=== PATIENT | male | born 1955 | race Caucasian/White ===

== ENCOUNTER 2017-08-29 11:41 | Inpatient (IN) | payer OTHER ==
[~2017-08-29] VITALS: Ht 167.6 cm; Wt 68.2 kg
--- NOTE | 2017-08-29 11:55 | NUR ---
[id number] FROM HOME C/O GENERALIZED BODY WEAKNESS, FEELS SLEEPY. PATIENT IS A/OX 3, BREATHING EVEN AND UNLABORED. NO SOB, NAD, VITALS STABLE. IV ESTABLISHED EN ROUTE ON LFA, 16G. SAFETY AND COMFORT MEASURES IN PLACE. AWAITING MD ORDERS.
[2017-08-29] MEDS ORDERED: IV NS 0.9% 1,000 ML BAG IV ONE ×2 (12:00→14:00)
[2017-08-29] MEDS ORDERED: ONDANSETRON HCL/PF 4 MG/2 ML VIAL IVP ONE (12:00)
[2017-08-29] MEDS ORDERED: ONDANSETRON HCL/PF 4 MG/2 ML VIAL ONE (12:03)
[2017-08-29 12:14] LABS: BASOPHILS # (AUTO) 0.2 /CMM (0.0-0.2); BASOPHILS % (AUTO) 1.7 % (0.0-2.0); EOSINOPHILS % (AUTO) 0.7 % (0.0-6.0); HEMATOCRIT 39 % (39-51); HEMOGLOBIN 13.4 g/dL (13.5-17.5); LYMPHOCYTES % (AUTO) 10.9 % (20.0-44.0); MEAN CORPUSCULAR HGB CONC 34 g/dl (31.0-36.0); MEAN CORPUSCULAR VOLUME 88 fL (80-96); MONOCYTES # (AUTO) 0.2 /CMM (0.1-1.30); MONOCYTES % (AUTO) 2.1 % (2.0-12.0); NEUTROPHILS # (AUTO) 7.5 /CMM (1.8-8.9); NEUTROPHILS % (AUTO) 84.6 % (43.0-81.0); PLATELET COUNT (AUTO) 261 /CMM (150-450); RDW COEFFICIENT OF VARIATION 12.8 (11.5-15.0); RED BLOOD CELL COUNT(AUTO) 4.45 MIL/uL (4.5-6.0)
--- NOTE | 2017-08-29 12:14 | NUR ---
PATIENT MEDICATED PER MD ORDERS.
[2017-08-29 12:24] LABS: CALCIUM, SERUM 8.4 mg/dL (8.5-10.1); CARBON DIOXIDE 27 mmol/L (21-32); CHLORIDE 103 mmol/L (98-107); CREATININE 0.8 mg/dL (0.6-1.3); GLUCOSE 125 mg/dL (74-106); POTASSIUM 4.1 mmol/L (3.5-5.1); SODIUM SERUM 135 mmol/L (136-145); UREA NITROGEN, BLOOD 14 mg/dL (7-18)
[2017-08-29 12:29] LABS: INR 0.92 (0.85-1.15)
[2017-08-29 12:30] LABS: ALANINE AMINOTRANSFERASE 17 U/L (12-78); ALBUMIN 3.5 g/dL (3.4-5.0); ALKALINE PHOSPHATASE 70 U/L (46-116); ASPARTATE AMINOTRANSFERASE 15 U/L (15-37); BILIRUBIN,DIRECT 0.1 mg/dL (0.0-0.2); BILIRUBIN,TOTAL 0.6 mg/dL (0.2-1.0); TOTAL PROTEIN, SERUM 6.7 g/dL (6.4-8.2)
[2017-08-29 12:34] LABS: TROPONIN I < 0.017 ng/mL (0.00-0.056)
--- NOTE | 2017-08-29 14:10 | NUR ---
ASSIGNED TO TELE #: [id number] DX: DIZZINESS/ HYPOTENSION ACCEPTING MD: DR. RODRIGUEZ
[2017-08-29] MEDS ORDERED: HYDROCODONE/APAP 5/325MG 1 EACH TABLET PO PRN (14:30)
[2017-08-29] MEDS ORDERED: MAGNESIUM HYDROXIDE 30 ML UDC PO PRN (14:30)
[2017-08-29] MEDS ORDERED: Z GUARD REMEDY 2 OZ OINT TP PRN (14:30)
[2017-08-29] MEDS ORDERED: ACETAMINOPHEN 325 MG TABLET PO PRN (14:30)
[2017-08-29] MEDS ORDERED: MAG HYDROX/AL HYDROX/SIMETH 30 ML UDC PO PRN (14:30)
[2017-08-29] MEDS ORDERED: ONDANSETRON HCL/PF 4 MG/2 ML VIAL IVP PRN (14:30)
[2017-08-29] MEDS ORDERED: ZOLPIDEM TARTRATE 5 MG TABLET PO PRN (14:30)
--- NOTE | 2017-08-29 14:52 | NUR ---
REPORT GIVEN TO ENA BORREGO FOR PING UPON ADMISSION.
[2017-08-29] MEDS ORDERED: ENOXAPARIN SODIUM 40 MG/0.4 ML DISP.SYRIN SQ SCH (15:00)
--- NOTE | 2017-08-29 15:00 | NUR ---
PATIENT TRANSPORTED TO 306-1 VIA ACLS PROTOCOL. RNENA TO PROVIDE PING.
--- NOTE | 2017-08-29 15:15 | NUR ---
STORAGE GARAGE ATTENDANTUNIT TENDER NOTES: Patient brought in by ELMO Diana to the unit via gurney, tele monitor in place. Patient alert, oriented x 4. Reports some dizziness with movement. Patient oriented to room. Call light within reach. Educated on use of call light. Bed in low, locked position. Peripheral IV on LFA g#16, intact and patent. Skin is intact. Patient reports living at home with sister. Denies any medical conditions or taking any medications at home. Instructed patient to call for assistance when ambulating. Urinal at bedside. No complaints of pain or any discomfort at this time.
[2017-08-29] MEDS: IV D5W 1,000 ML IV PRN (15:42)
--- NOTE | 2017-08-29 19:22 | NUR ---
RN CLOSING NOTES: Patient resting in bed, alert, oriented x3-4. Breathing even and unlabored. No SOB, not in acute distress. Peripheral IV infusing at 75mL/Hr on LFA g#16. On Tele monitor, sinus rhythm. No complaints of discomfort. Call webb within reach. Bed in low locked position. Urinal at bedside. Endorsed to assembler 1st shift RN for PING
--- NOTE | 2017-08-29 19:49 | NUR ---
rn initial notes: received report from monica hart, pt in bed, awake, a/o x3 on ra respiration even and unlabored,denies any head ache or pain at this time, on sinus rhythm hr 67, iv access patent and flushing well, infusing with d5w at 75ml/hr. discussed with pt regarding plan of care for tonight, safety precautions for fall initiated, call light in reach, will continue monitoring pt.
[2017-08-29 20:00] VITALS: BP 102/63
[2017-08-29 20:15] VITALS: BP 105/55
[2017-08-29 20:30] VITALS: BP 99/63
--- NOTE | 2017-08-29 22:00 | NUR ---
RN NOTES: PROVIDED SNACK TO THE PT, CONSUMED SNACK 100%
--- NOTE | 2017-08-29 22:47 | NUR ---
PRN AMBIEN: PT REQUESTED FOR SLEEPING PILL, HE STATED HE USED TO TAKE OVER THE COUNTER SLEEPING PILL AT HOME TO HELP HIM SLEEP, HE CLAIMED THIS ISN'T THE FIRST TIME HE WILL TAKE SLEEPING MEDICATION. PRN AMBIEN 5MG TAB PO ADMINISTERED AT THIS TIME.
[2017-08-30 00:13] VITALS: BP 116/75
[2017-08-30 00:14] VITALS: BP 116/75
[2017-08-30 00:30] VITALS: BP 118/55
--- NOTE | 2017-08-30 01:11 | NUR ---
RN NOTES: ASSISTED PT TO THE RESTROOM , HE STATED HE FELT MORE COMFORTABLE USING THE RESTROOM THAN URINAL
[2017-08-30] MEDS: IV D5W 1,000 ML IV PRN (03:11)
[2017-08-30 04:34] VITALS: BP 110/70
[2017-08-30 05:00] VITALS: BP 116/69
[2017-08-30 06:11] LABS: BASOPHILS # (AUTO) 0.1 /CMM (0.0-0.2); BASOPHILS % (AUTO) 0.6 % (0.0-2.0); EOSINOPHILS % (AUTO) 2.6 % (0.0-6.0); HEMATOCRIT 38 % (39-51); HEMOGLOBIN 12.8 g/dL (13.5-17.5); LYMPHOCYTES # (AUTO) 2.3 /CMM (0.8-4.8); LYMPHOCYTES % (AUTO) 19.7 % (20.0-44.0); MEAN CORPUSCULAR HGB CONC 33 g/dl (31.0-36.0); MEAN CORPUSCULAR VOLUME 93 fL (80-96); MONOCYTES # (AUTO) 0.7 /CMM (0.1-1.30); MONOCYTES % (AUTO) 6.1 % (2.0-12.0); NEUTROPHILS # (AUTO) 8.1 /CMM (1.8-8.9); PLATELET COUNT (AUTO) 235 /CMM (150-450); RDW COEFFICIENT OF VARIATION 13.8 (11.5-15.0); RED BLOOD CELL COUNT(AUTO) 4.13 MIL/uL (4.5-6.0); WHITE BLOOD COUNT (AUTO) 11.4 K/uL (4.3-11.0)
--- NOTE | 2017-08-30 06:34 | NUR ---
RN NOTES: RT KURT CAME TO GIVE BREATHING TREATMENT BUT NOW PT IS REFUSING, SOCIETY REPORTER JOHNATHAN CAME TO TALK TO THE PT, TRY TO CONVINCE HER TO GET THE TREATMENT SINCE SHE'S BEEN CALLING FOR IT AND WE EVEN HAVE CALLED THE RT TO GIVE THE TREATMENT EARLIER THAN SCHEDULED TIME. BUT NOW PT CHANGING HER MIND.
--- NOTE | 2017-08-30 06:43 | NUR ---
RN CLOSING NOTES: PT IN BED, REMAINS SINUS RHYTHM THEN SINUS LEXA HR 58. DENIES ANY PAIN OR DISCOMFORT, DENIES ANY DIZZINESS. IV ACCESS REMAINS PATENT AND FLUSHING WELL, INFUSING WITH D5W AT 75ML/HR. URINAL WITHIN REACH. VS REMAINS STABLE. NEEDS ATTENDED. SAFETY PRECAUTIONS FOR FALL REMAINS ENGAGED, CALL LIGHT IN REACH, WILL ENDORSE TO DAY RN FOR PING.
[2017-08-30 06:54] LABS: CREATININE 0.7 mg/dL (0.6-1.3); MAGNESIUM 1.9 mg/dL (1.8-2.4); PHOSPHORUS 2.7 mg/dL (2.5-4.9); POTASSIUM 3.8 mmol/L (3.5-5.1)
--- NOTE | 2017-08-30 07:15 | NUR ---
TRACK HELPER OPENING NOTES RECEIVED PT SITTING UPRIGHT IN BED. AWAKE AND RESPONSIVE. RESPIRATIONS ARE EVEN AND UNLABORED, NOT IN ANY ACUTE DISTRESS NOTED. PT DENIES ANY PAIN, SOB, N/V. IV SITE INTACT, NO INFILTRATION NOTED. DRESSING KEPT CLEAN AND DRY. SAFETY MEASURES ARE IN PLACE. INSTRUCTED PT ON HOW TO USE THE CALL LIGHT WHEN ASSISTANCE IS NEEDED, CALL LIGHT IS LEFT WITHIN REACH. WILL CONTINUE TO MONITOR THROUGHOUT SHIFT.
[2017-08-30 08:00] VITALS: BP 126/74
--- NOTE | 2017-08-30 11:00 | NUR ---
MS RN NOTES PT SEEN AND EXAMINED BY DR. JENNIFER Frias/ ORDERS FOR DISCHARGE. PT MADE AWARE AND AGREED.
--- NOTE | 2017-08-30 13:50 | NUR ---
STEMMER MACHINE NOTE PT DISCHARGED TO HOME ACCOMPANIED BY SISTER AND FRIEND VIA PERSONAL VEHICLE IN STABLE CONDITION. ALERT, AWAKE AND RESPONSIVE. RESPIRATIONS ARE EVEN AND UNLABORED, NOT IN ANY ACUTE DISTRESS NOTED. PT DENIES ANY PAIN, SOB, N/V, DIZZINESS. PT WAS SEEN BY PT TODAY AND ABLE TO AMBULATE AROUND THE WHOLE UNIT. NO SKIN INJURIES NOTED. PT HAS NO CONCERNS AT THIS TIME AND STATED "IM GLAD TO BE GOING HOME." EXPLAINED DISCHARGE PAPERWORK TO PT PROVIDED WRITTEN AND VERBALIZED UNDERSTANDING. IV REMOVED, APPLIED PRESSURE AND TOLERATED WELL. ALL BELONGINGS SENT WITH PT. ACCOMPANIED PT DOWNSTAIRS TO VEHICLE IN STABLE CONDITION.
== END 2017-08-30 13:50 | disposition home or self-care (01) | DRG 204 ==
LOC: ER 11:42 → TELE 14:44 → MED 08-30 09:57
PROVIDERS: ADMIT Internal Medicine; ATTEND Internal Medicine
DX: I95.1 Orthostatic hypotension (principal); E87.1 Hypo-osmolality and hyponatremia; E78.5 Hyperlipidemia, unspecified; H81.399 Other peripheral vertigo, unspecified ear; D72.829 Elevated white blood cell count, unspecified
CPT/HCPCS: 36415; 70450-TC; 71045-TC; 80048-TC; 80061-TC; 80076-TC; 82962-TC; 83735-TC; 84100-TC; 84484-TC; 85025-TC; 85730-TC; 87081-TC; 93307-TC; A4606; J1650; J2405; J7030; J7070; Z7610